=== PATIENT | male | born 1970 | race Caucasian/White ===

== ENCOUNTER 2018-05-01 22:57 | Emergency (ER) | payer SELFPAY ==
[~2018-05-01] VITALS: Wt 85.5 kg
--- NOTE | 2018-05-02 00:14 | ERD ---
ER Documentation Chief Complaint Chief Complaint EPI AP PAIN HPI The patient is a 48-year-old male, presenting to the ER because of epigastric abdominal pain for 2 days intermittently, worse tonight around 10 PM, last meal was about 6 PM. He denies fever, chills, neck pain, chest pain, dyspnea, vomiting, dysuria, diarrhea. He does not smoke, drinks socially. Past medical/surgical history: None ROS All systems reviewed and are negative except as per history of present illness. Medications Home Meds Active Scripts Pantoprazole* (Protonix*) 40 Mg Tablet., 40 MG PO DAILY, #10 TAB Prov:LIVAN HAYNES MD 05/02/18 Allergies Allergies: Coded Allergies: No Known Allergy (Unverified , 01/06/14) Physical Exam Vitals Vital Signs Date Temp Pulse Resp B/P (MAP) Pulse Ox O2 O2 Flow FiO2 Time Delivery Rate 05/02/18 66 16 91/74 (80) 97 Room Air 02:03 05/02/18 98.2 74 16 126/97 100 Room Air 00:25 (107) 05/01/18 97.2 75 18 148/102 99 23:02 (117) Physical Exam Const: No acute distress. Head: Atraumatic. Eyes: Normal Conjunctiva. ENT: Normal External Ears, Nose and Mouth. Neck: Full range of motion. No meningismus. Resp: Clear to auscultation bilaterally. Cardio: Regular rate and rhythm. Abd: Soft, non distended, normal bowel sounds, mild epigastric tenderness, no right lower quadrant, rigidity, rebound or CVA tenderness Skin: No petechiae or rashes. Back: No midline or flank tenderness. Ext: No cyanosis, or edema. Neur: Awake and alert. No focal deficit Psych: Normal Mood and Affect. Result Diagram: 05/02/181 05/02/1830 Results 24 hrs Laboratory Tests Test 05/02/18 00:31 05/02/18 00:46 White Blood Count 5.8 10^3/ul Red Blood Count 5.31 10^6/ul Hemoglobin 16.1 g/dl Hematocrit 45.3 % Mean Corpuscular Volume 85.3 fl Mean Corpuscular Hemoglobin 30.3 pg Mean Corpuscular Hemoglobin Concent 35.5 g/dl Red Cell Distribution Width 11.9 % Platelet Count 175 10^3/UL Mean Platelet Volume 11.4 fl Immature Granulocytes % 0.200 % Neutrophils % 53.0 % Lymphocytes % 34.5 % Monocytes % 7.6 % Eosinophils % 3.8 % Basophils % 0.9 % Nucleated Red Blood Cells % 0.0 /100WBC Immature Granulocytes # 0.010 10^3/ul Neutrophils # 3.1 10^3/ul Lymphocytes # 2.0 10^3/ul Monocytes # 0.4 10^3/ul Eosinophils # 0.2 10^3/ul Basophils # 0.1 10^3/ul Nucleated Red Blood Cells # 0.0 10^3/ul Sodium Level 141 mmol/L Potassium Level 4.1 mmol/L Chloride Level 101 mmol/L Carbon Dioxide Level 29 mmol/L Anion Gap 11 Blood Urea Nitrogen 19 mg/dl Creatinine 1.11 mg/dl Est Glomerular Filtrat Rate mL/min > 60 mL/min Glucose Level 107 mg/dl Calcium Level 9.2 mg/dl Total Bilirubin 0.6 mg/dl Direct Bilirubin 0.00 mg/dl Indirect Bilirubin 0.6 mg/dl Aspartate Amino Transf (AST/SGOT) 27 IU/L Alanine Aminotransferase (ALT/SGPT) 51 IU/L Alkaline Phosphatase 70 IU/L Total Protein 7.7 g/dl Albumin 4.3 g/dl Globulin 3.40 g/dl Albumin/Globulin Ratio 1.26 Lipase 80 U/L Bedside Urine pH (LAB) 6.5 Bedside Urine Protein (LAB) Negative Bedside Urine Glucose (UA) Negative Bedside Urine Ketones (LAB) Negative Bedside Urine Blood Trace-intact Bedside Urine Nitrite (LAB) Negative Bedside Urine Leukocyte Esterase (L Negative Current Medications Medications Dose Sig/Precious Start Time Status Last (Trade) Ordered Route PRN Stop Time Admin Dose Reason Admin Morphine 4 mg ONCE STAT 05/02/18 DC Sulfate IV 00:19 05/02/18 (morphine) 00:40 Ondansetron 4 mg ONCE STAT 05/02/18 DC HCl (Zofran IV 00:19 05/02/18 Inj) 00:21 Ketorolac 30 mg ONCE STAT 05/02/18 DC 05/02/18 Tromethamine IV 00:39 05/02/18 00:44 (Toradol) 00:40 Procedures/[address] [address] Radiology Main Line: [phone] DIAGNOSTIC IMAGING REPORT Patient: AVEL HOLCOMB : 1970 Age: 48 Sex: M [id number] DOS: 05/02/18 0019 Ordering MD: LIVAN HAYNES MD Location: E/R Room/Bed: PROCEDURE: US gallbladder . CLINICAL INDICATION: Abdominal pain TECHNIQUE: Multiple real-time images were acquired of the patient's abdomen utilizing a high resolution transducer. COMPARISON: None FINDINGS: There is no evidence of cholelithiasis. There is no gallbladder wall thickening or pericholecystic fluid. The CBD measures 2 mm. The pancreas is not visualized. No focal liver lesions are seen. There is no ev idence for right-sided hydronephrosis. IMPRESSION: Unremarkable gallbladder ultrasound. RPTAT: HAP Admit-r Eliot, Physician Date Time Electronically viewed and signed by Admit-r Eliot, Physician on 05/02/2018 02:51 AP/ CC: LIVAN HAYNES MD [id number] EKG: Read by emergency physician Rate/Rhythm: Normal Sinus Rhythm 71 beats/min QRS, ST, T-waves: No ST elevation, no T inversion, SA, LAE, RBBB Impression: Abnormal EKG MEDICAL MAKING DECISION: The patient is a 48-year-old male, presenting with acute epigastric abdominal pain of unclear etiology, was treated with Toradol 30 mg IV for pain with good response, is stable for outpatient follow-up The differential diagnoses considered include but are not limited to cholelithiasis, cholecystitis, choledocholithiasis, cholangitis, pancreatitis, hepatitis, gastritis, peptic ulcer disease, gastric ulcer, appendicitis, cystitis, diverticulitis, partial small bowel obstruction. Departure Diagnosis: Primary Impression: Abdominal pain Condition: Good Comments He was discharged with Protonix The patient's blood pressure was elevated (>120/80) but appears stable without evidence of hypertension emergency or urgency. The patient was counseled about the risks of hypertension and urged to pursue outpatient monitoring and therapy within a week with their primary care physician. I discussed the findings with the patient. I advised the patient to follow-up w ith the primary physician in about 2-3 days for reevaluation and referral to gastroenterology for upper endoscopy and cardiology for abnormal EKG, sooner if needed and return if any concern. Disclaimer: Inadvertent spelling and grammatical errors are likely due to EHR/dictation software use and do not reflect on the overall quality of patient care. Also, please note that the electronic time recorded on this note does not necessarily reflect the actual time of the patient encounter. LIVAN HAYNES MD May 02, 2018 00:14
[2018-05-02] MEDS ORDERED: morphine 4 MG/ML VIAL IV STA (00:19)
[2018-05-02] MEDS ORDERED: ONDANSETRON 4 MG INJ IV STA (00:19)
[2018-05-02] MEDS ORDERED: KETOROLAC 30 MG INJ IV STA (00:39)
[2018-05-02] MEDS ORDERED: PANT40TA3 PO (03:07)
[2018-05-02 03:09] VITALS: BP 133/92; PULSE 80; RESP 16
== END 2018-05-02 03:14 | disposition home or self-care (01) ==
LOC: E/R 22:57
DX: R10.13 Epigastric pain (principal)
CPT/HCPCS: 36415; 76705; 80053; 81003; 83690; 85025; 93005; 96374; 99285; J1885